=== PATIENT | female | born 1955 | race Caucasian/White ===

== ENCOUNTER → 2020-11-14 | Outpatient (CLI) | payer OTHER ==
[~2020-11-14] MED LIST: ARICEPT5 MG PO; ATENOLOL25 MG PO; BENTYL 10MG CAP10 MG PO; COLESTID1 GM PO; ELIQUIS2.5 MG PO; ENDOCET 10-3251 EACH PO; HYDROCODON-ACE1 EAC6 PO; KLONOPIN0.5 MG PO; LEXAPRO20 MG PO; METHOTREXATE T2.5 MG PO; NEURONTIN600 MG PO; NORVASC5 MG PO; OMEPRAZOLE40 MG PO; PREDNISONE5 MG PO; VITAMIN D21250 MCG PO
[2020-11-14 13:13] LABS: HEMOGLOBIN 13.4 gm/dl (12.3-15.3); RED BLOOD COUNT 4.34 M/UL (4.00-5.10); WHITE BLOOD COUNT 9.2 K/UL (4.5-11.0)
== END ==
LOC: OPSV2 11-09 09:00 → EDSTATUS 12:00 → OPSV2 12:00
PROVIDERS: Orthopaedic Surgery
DX: Z01.818 Encounter for other preprocedural examination (principal); M17.12 Unilateral primary osteoarthritis, left knee
CPT/HCPCS: 36415; 71046; 80048; 81001; 83036; 85025; 87077; 87081; 87086; 87186; 93005

== ENCOUNTER 2020-11-22 06:54 | Day surgery (SDC) | payer MEDICARE ==
[~2020-11-22] VITALS: Ht 167.6 cm; Wt 117.9 kg
[~2020-11-22 06:54] MED LIST changes: -ELIQUIS2.5 MG PO; -ENDOCET 10-3251 EACH PO
[2020-11-22] MEDS ORDERED: ELIQUIS2.5 MG PO (08:48)
[2020-11-22] MEDS ORDERED: ENDOCET 10-3251 EACH PO (08:48)
[2020-11-22 15:32] LABS: HEMOGLOBIN 12.1 gm/dl (12.3-15.3); RED BLOOD COUNT 3.94 M/UL (4.00-5.10); WHITE BLOOD COUNT 15.7 K/UL (4.5-11.0)
[2020-11-23 02:54] LABS: HEMOGLOBIN 10.6 gm/dl (12.3-15.3); WHITE BLOOD COUNT 14.3 K/UL (4.5-11.0)
[2020-11-23 02:58] LABS: RED BLOOD COUNT 3.49 M/UL (4.00-5.10)
--- NOTE | 2020-11-23 12:28 | NUR ---
PT STATES IS NOT DIABETIC. WANTED TO DO ACCUCHECK BEFORE SENDING HER HOME DUE TO MORNING LABS BEING 326. ACCUCHECK SHOWED 257. REPORTED THIS READING TO SAMANTHA AND DR. HOWARD. DR. HOWARD STATES TO HAVE PT. FOLLOW UP WITH PRIMARY PROVIDER. EXPLAINED ALL THIS TO PT. AND PT. WILL FOLLOW UP WITH PRIMARY MD ABOUT HER GLUCOSE READINGS. PT IS NOT SYMPTOMATIC AND STATES HAS GLUCOMETER AT HOME AND SHE RANDOMLY CHECKS HER SUGAR WHERE IT IS NORMALLY IN THE 100'S.
== END 2020-11-23 14:55 | disposition home or self-care (01) ==
LOC: OR 06:54 → ZOBSOF 06:54 → M/S 06:54 → EDSTATUS 08:15 → M/S 14:07 → ZOBSOF 14:07 → MED SURG 4 16:35 → M/S 16:35 → OR 11-23 14:55 → M/S 11-23 14:55
PROVIDERS: Internal Medicine; Orthopaedic Surgery
PROC: 0SRD0J9 Replacement of Left Knee Joint with Synthetic Substitute, Cemented, Open Approach (ICD-10-PCS; principal; 2020-11-22 08:15)
DX: M17.12 Unilateral primary osteoarthritis, left knee (principal); Z68.41 Body mass index [BMI] 40.0-44.9, adult; E66.01 Morbid (severe) obesity due to excess calories; M06.9 Rheumatoid arthritis, unspecified; G47.33 Obstructive sleep apnea (adult) (pediatric); I10 Essential (primary) hypertension; M79.7 Fibromyalgia; Z20.822 Contact with and (suspected) exposure to COVID-19; D64.9 Anemia, unspecified; K58.9 Irritable bowel syndrome, unspecified; Z90.710 Acquired absence of both cervix and uterus; Z90.49 Acquired absence of other specified parts of digestive tract; Z98.42 Cataract extraction status, left eye; Z98.41 Cataract extraction status, right eye; Z82.49 Family history of ischemic heart disease and other diseases of the circulatory system; Z88.8 Allergy status to other drugs, medicaments and biological substances
CPT/HCPCS: 36415; 73560; 80048; 82436; 82570; 82962; 84133; 84156; 84300; 85025; 85027; 86850; 86900; 86901; 97116-GP-CQ; 97162; 97166; 97530; 97530-GP-CQ; 97535; C1776; J0171; J0690; J1100; J1170; J2001; J2370; J2405; J2704; J2710; J2795; J3010; J3370; J7030; J7120